=== PATIENT | female | born 1970 | race Hispanic/Latino ===

== ENCOUNTER 2020-09-14 13:20 | Emergency (ER) | payer SELFPAY ==
[2020-09-14] MEDS ORDERED: ACETAMINOPHEN EXTRA STRENGTH 500 MG TABLET ONE (13:45)
== END 2020-09-14 14:26 | disposition home or self-care (01) ==
LOC: EDH 13:20
DX: S61.215A Laceration without foreign body of left ring finger without damage to nail, initial encounter (principal); I10 Essential (primary) hypertension; Z90.49 Acquired absence of other specified parts of digestive tract; Z90.710 Acquired absence of both cervix and uterus; W26.0XXA Contact with knife, initial encounter; Y93.89 Activity, other specified; Y92.89 Other specified places as the place of occurrence of the external cause; Y99.8 Other external cause status
CPT/HCPCS: 12001; 73130